=== PATIENT | male | born 1970 | race Caucasian/White ===

== ENCOUNTER 2023-11-10 08:11 | Emergency (ER) | payer OTHER, SELFPAY ==
[2023-11-10 08:16] VITALS: BP 144/86; PULSE 84; TEMP 36.7; O2SAT 98; BMI 30.1
[2023-11-10 08:27] VITALS: PULSE 80
--- NOTE | 2023-11-10 08:39 | XR_ITS ---
The [address] [address] Patient Name: YESSENIA GORDON MRN: [id number] date: 1970 Sex: M Assigned Patient Location: ER Current Patient Location: ED.MAIN Accession/Order Number: [id number] Exam Date: 11/10/2023 08:45 Report Date: 11/10/2023 09:07 At the request of: MILAN HIGGINS Procedure: XR elbow LT min 3V PROCEDURE: XR elbow LT min 3V COMPARISON: None. HISTORY: elbow pain FINDINGS: BONES:No fracture, acute abnormality, or significant arthropathy. SOFT TISSUES:Posterior and medial soft tissue injury/laceration. Multiple areas of hyperdensity could represent debris within the soft tissues EFFUSION:None visible. OTHER: Negative. XR/XR elbow LT min 3V IMPRESSION: Likely debris within the soft tissue injury/laceration in the posterior and medial elbow Electronically authenticated by: THEO NEGRETE Date: 11/10/2023 09:07
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
[2023-11-10] MEDS: LIDOCAINE HCL 1% 100 MG/10 ML MDV INJ (10:09)
[2023-11-10] MEDS: BUPIVACAINE HCL 0.5% PF 50 MG/10 ML VIAL 5 ML INJ (10:09)
[2023-11-10] MEDS: BACITRACIN 0.9 GM PACKET 1 PACKET TOPICAL (10:10)
[2023-11-10] MEDS: WATER FOR IRRIGATION, STERILE 1,000 ML IRRIG.SOLN 1000 ML IRR (11:06)
== END 2023-11-10 11:43 | disposition home or self-care (01) ==
PROVIDERS: Emergency Provider Emergency Medicine; PCP Internal Medicine
DX: S51.012A Laceration without foreign body of left elbow, initial encounter (principal); M25.522 Pain in left elbow; S50.02XA Contusion of left elbow, initial encounter; M79.662 Pain in left lower leg; V28.49XA Other motorcycle driver injured in noncollision transport accident in traffic accident, initial encounter
CPT/HCPCS: 12002; 73080; 99284; J0665

== ENCOUNTER 2023-11-13 12:33 | Outpatient (OUT) | payer OTHER, SELFPAY ==
--- NOTE | 2023-11-13 | XR_ITS ---
The [address] [address] Patient Name: YESSENIA GORDON MRN: [id number] date: 1970 Sex: M Assigned Patient Location: Current Patient Location: Accession/Order Number: [id number] Exam Date: 11/13/2023 12:40 Report Date: 11/15/2023 06:06 At the request of: MORENO SHEN Procedure: XR elbow LT 2V PROCEDURE: XR elbow LT 2V HISTORY: LEFT ELBOW PAIN ; posterior laceration COMPARISON: XR elbow left 11/10/2023 FINDINGS: BONES:No appreciable fracture or dislocation. SOFT TISSUES:Soft tissue swelling and numerous small radiopaque foreign bodies within soft tissues posterior to the elbow. EFFUSION:None visible. OTHER: Negative. XR/XR elbow LT 2V IMPRESSION: 1. No appreciable fracture or joint effusion. 2. Soft tissue swelling and numerous small radiopaque foreign bodies within the soft tissues posterior to the elbow. Electronically authenticated by: MORENO PADILLA Date: 11/15/2023 06:06
== END 2023-11-13 12:34 | disposition home or self-care (01) ==
LOC: EC 12:35
PROVIDERS: PCP Internal Medicine; Visit Provider Orthopaedic Surgery
DX: M25.522 Pain in left elbow (principal)
CPT/HCPCS: 73070